=== PATIENT | female | born 1940 | race Caucasian/White ===

== ENCOUNTER → 2018-04-17 | Outpatient (CLI) | payer MEDICARE, OTHER ==
[~2018-04-17] MED LIST: ALEN70 PO; ALPR0.5T99 PO; CELE20TA PO; CLOP75 PO; HYDR-2768 PO; KLOR20TA6 PO; LEVO.1 PO; MECL25 PO; OXYB5TAB PO; PIND5 PO; TELM1TAB56 PO; VITA100018 PO; ZOCO40TA PO
[2018-04-17 10:15] LABS: ALBUMIN 3.5 GM/DL (3.4-5.0); BICARBONATE 26.4 MEQ/L (21.0-32.0); BLOOD UREA NITROGEN 19 MG/DL (7-18); CALCIUM 9.4 MG/DL (8.5-10.1); CHLORIDE 106 MEQ/L (98-107); GLOMERULAR FILTRATION RATE 40 ML/MIN (>89); GLUCOSE,FASTING 92 MG/DL (74-99); PHOSPHORUS 3.6 MG/DL (2.5-4.9); SODIUM (NA) 142 MEQ/L (136-145)
[2018-04-17 10:16] LABS: CHOLESTEROL 260 MG/DL (120-200)
[2018-04-17 10:25] LABS: CHOLESTEROL/ HDL RATIO 5.17 RATIO; HDL CHOLESTEROL 50.2 MG/DL (40.0-60.0); LDL CHOLESTEROL 182 MG/DL (0-99); TRIGLYCERIDES 138 MG/DL (42-150)
[2018-04-17 16:33] LABS: HEMOGLOBIN A1C 5.4 % (4.3-6.0)
== END ==
LOC: PLAB 07:17
PROVIDERS: ATTEND Family Medicine
DX: I12.9 Hypertensive chronic kidney disease with stage 1 through stage 4 chronic kidney disease, or unspecified chronic kidney disease (principal); N18.3 Chronic kidney disease, stage 3 (moderate); R73.9 Hyperglycemia, unspecified; E03.8 Other specified hypothyroidism
CPT/HCPCS: 36415; 80061; 80069; 83036; 84443